=== PATIENT | female | born 2000 | race Hispanic/Latino ===

== ENCOUNTER 2024-04-28 00:04 | Emergency (ER) | payer SELFPAY ==
[~2024-04-28] VITALS: Ht 172.7 cm; Wt 116.1 kg
--- NOTE | 2024-04-28 00:08 | NUR ---
UA CUP PROVIDED
[2024-04-28 00:35] LABS: BASOPHILS # (AUTO) 0.01 K/uL (0.00-0.20); BASOPHILS % (AUTO) 0.1 % (0.0-5.0); EOSINOPHILS # (AUTO) 0.05 K/uL (0.00-0.70); EOSINOPHILS % (AUTO) 0.4 % (0.0-8.0); HEMATOCRIT 43.6 % (36-48); IMMATURE GRANULOCYTE ABSOLUTE 0.05 K/uL (0-1); LYMPHOCYTES # (AUTO) 0.6 K/uL (1.0-4.8); MEAN CORPUSCULAR HEMOGLOBIN 29.4 pg (27.0-33.0); MEAN CORPUSCULAR HGB CONC 33.5 g/dL (32.0-36.0); MEAN CORPUSCULAR VOLUME 87.9 fL (79-99); MONOCYTES # (AUTO) 0.4 K/uL (0.1-1.0); MONOCYTES % (AUTO) 3.4 % (3.0-13.0); NEUTROPHILS # (AUTO) 10.6 K/uL (1.8-7.7); NEUTROPHILS % (AUTO) 90.7 % (40.0-77.0); PLATELET COUNT (AUTO) 288 K/uL (130-400); RED BLOOD CELL COUNT(AUTO) 4.96 MIL/uL (4.00-5.50); RED CELL DISTRIBUTION WIDTH 13.5 % (11.0-15.5); WHITE BLOOD COUNT (AUTO) 11.7 K/uL (4.8-10.8)
[2024-04-28 00:42] LABS: CREATININE 0.7 mg/dL (0.5-1.0)
[2024-04-28 00:45] LABS: ALBUMIN 3.9 g/dL (3.5-5.0); BILIRUBIN,DIRECT 0.2 mg/dL (0.0-0.3); BILIRUBIN,TOTAL 0.9 mg/dL (0.2-1.0); TOTAL PROTEIN, SERUM 7.8 g/dL (6.0-8.3)
[2024-04-28] MEDS: ondanSETRON ODT 4MG TAB SL ONE (00:47)
[2024-04-28] MEDS: PANTOPrazole 40 MG TAB DR PO ONE (00:47)
[2024-04-28] MEDS: MAG/ALUM/SIMETH 30 ML UDCUP PO ONE (00:47)
[2024-04-28] MEDS: LIDOCAINE HCL 2% VISCOUS 15 ML UDCUP PO ONE (00:47)
[2024-04-28 01:11] LABS: APPEARANCE,URINE CLOUDY (CLEAR); BILIRUBIN,URINE NEGATIVE (NEGATIVE); COLOR,URINE YELLOW (YELLOW); GLUCOSE, URINE (UA) NEGATIVE (NEGATIVE); KETONES,URINE 10 mg/dL (NEGATIVE); LEUKOCYTE ESTERASE ,URINE 250 Leu/uL (NEGATIVE); NITRATE,URINE NEGATIVE (NEGATIVE); OCCULT BLOOD,URINE MODERATE (NEGATIVE); PROTEIN,URINE 20 mg/dL (NEGATIVE); UROBILINOGEN,URINE 0.2 mg/dL (0.2-1.0)
[2024-04-28 01:16] LABS: BACTERIA,URINE RARE /HPF (None Seen); MUCUS,URINE RARE LPF (None Seen); SQUAMOUS EPITHELIAL CELL,UR MANY /HPF (0-2)
[2024-04-28 01:18] LABS: HCG,QUALITATIVE URINE NEGATIVE (NEGATIVE)
[2024-04-28] MEDS ORDERED: CEPH500T PO (01:50)
[2024-04-28] MEDS ORDERED: ONDA-243 PO (01:50)
[2024-04-28] MEDS ORDERED: OMEP10CA5 PO (01:50)
--- NOTE | 2024-04-28 01:51 | ERN ---
General Chief Complaint: Abdominal Pain Stated Complaint: ABD N/V/D Time Seen by MD: 00:10 Time Seen by Midlevel: 00:10 Source: patient History of Present Illness Initial Comments 23-year-old female who presents to the emergency department due to abdominal pain onset today. Patient reports nausea, vomiting, diarrhea but denies any fever, cough, congestion, shortness of breath or further associated symptoms. Patient unknown of last unknown menstrual cycle. Patient denies any significant past medical history. Allergies: Coded Allergies: No Known Allergies (Unverified Allergy, Unknown, 04/28/24) Home Meds Active Scripts Ondansetron (Ondansetron Odt) 4 Mg Tab.rapdis, 4 MG PO TID for 3 Days, #9 TAB Prov:SAMANTHA GUZMÁN 04/28/24 Omeprazole (Omeprazole) 10 Mg Capsule.dr, 1 CAP PO DAILY PRN for prn for 7 Days, #30 CAP 0 Refills Prov:SAMANTHA GUZMÁN 04/28/24 Cephalexin (Cephalexin) 500 Mg Tablet, 1 TAB PO BID for 7 Days, #14 TAB 0 Refills Prov:SAMANTHA GUZMÁN 04/28/24 Past Medical History Past Medical History: No Pertinent History Past Surgical History: None ROS Dictation Constitutional: Negative for fever,chills, and weight loss Eyes: Negative for injury, pain,redness, and discharge ENT: Negative for injury,pain or swelling Cardiovascular: Negative for chest pain, palpitations, and edema Respiratory: Negative for shortness of breath, cough, and wheezing, Abdomen/GI: Positive for abdominal pain, nausea, vomiting, diarrhea Negative for constipation Back: Negative for injury and pain : Negative for painful urination, bleeding or discharge MS/Extremity: Negative for injury and deformity Skin: Negative for rash, and discoloration Neuro: Negative for headache, weakness, numbness, tingling, and seizure Psych: Negative for suicide ideation, homicidal ideation, and hallucinations Physical Exam Physical Exam Dictation General: awake, alert, no acute distress Head/Face: Normocephalic, atraumatic Eyes: PERRL, EOMI, normal conjunctiva ENT: oral cavity clear, oral mucosa moist Neck: Supple, normal range of motion Cardiovascular: RRR, normal S1/S2 Respiratory: CTAB, no respiratory distress, no rales or wheezes Abdomen: Soft, non-tender, non-distended, normal bowel sounds, no guarding or rebound. Skin: Warm, dry, normal turgor, no rash MS/Extremity: Pulses equal, no cyanosis, neurovascular intact, FROM Neuro: COAx4, GCS 15, no neurological deficits, normal gait Results Laboratory and Microbiology Lab and Micro Result Laboratory Tests Test 04/28/24 00:25 04/28/24 00:54 White Blood Count 11.7 K/uL (4.8-10.8) H Red Blood Count 4.96 MIL/uL (4.00-5.50) Hemoglobin 14.6 g/dL (12.0-16.0) Hematocrit 43.6 % (36-48) Mean Corpuscular Volume 87.9 fL (79-99) Mean Corpuscular Hemoglobin 29.4 pg (27.0-33.0) Mean Corpuscular Hemoglobin Concent 33.5 g/dL (32.0-36.0) Red Cell Distribution Width 13.5 % (11.0-15.5) Platelet Count 288 K/uL (130-400) Mean Platelet Volume 10.0 fL (7.5-10.5) Immature Granulocyte % (Auto) 0.4 % (0-1) Neutrophils (%) (Auto) 90.7 % (40.0-77.0) H Lymphocytes (%) (Auto) 5.0 % (21.0-51.0) L Monocytes (%) (Auto) 3.4 % (3.0-13.0) Eosinophils (%) (Auto) 0.4 % (0.0-8.0) Basophils (%) (Auto) 0.1 % (0.0-5.0) Neutrophils # (Auto) 10.6 K/uL (1.8-7.7) H Lymphocytes # (Auto) 0.6 K/uL (1.0-4.8) L Monocytes # (Auto) 0.4 K/uL (0.1-1.0) Eosinophils # (Auto) 0.05 K/uL (0.00-0.70) Basophils # (Auto) 0.01 K/uL (0.00-0.20) Absolute Immature Granulocyte (auto 0.05 K/uL (0-1) Nucleated Red Blood Cells 0.0 % (0.0-0.19) White Cell Morphology Comment See comments Sodium Level 136 mmol/L (136-145) Potassium Level 4.0 mmol/L (3.5-5.1) Chloride Level 102 mmol/L (101-111) Carbon Dioxide Level 25 mmol/L (21-32) Blood Urea Nitrogen 10 mg/dL (7-18) Creatinine 0.7 mg/dL (0.5-1.0) Glomerular Filtration Rate Calc 125 mL/min (>90) Random Glucose 143 mg/dL (70-105) H Total Calcium 9.0 mg/dL (8.5-10.1) Total Bilirubin 0.9 mg/dL (0.2-1.0) Direct Bilirubin 0.2 mg/dL (0.0-0.3) Aspartate Amino Transf (AST/SGOT) 21 U/L (10-37) Alanine Aminotransferase (ALT/SGPT) 36 U/L (12-78) Alkaline Phosphatase 77 U/L (50-136) Total Protein 7.8 g/dL (6.0-8.3) Albumin 3.9 g/dL (3.5-5.0) Lipase 16 U/L (16-77) Urine Color YELLOW (YELLOW) Urine Appearance CLOUDY (CLEAR) H Urine pH 5.0 (5.0-8.0) Urine Specific [place] 1.027 (1.001-1.031) Urine Protein 20 mg/dL (NEGATIVE) H Urine Glucose (UA) NEGATIVE mg/dL (NEGATIVE) Urine Ketones 10 mg/dL (NEGATIVE) H Urine Occult Blood MODERATE (NEGATIVE) H Urine Nitrate NEGATIVE (NEGATIVE) Urine Bilirubin NEGATIVE mg/dL (NEGATIVE) Urine Urobilinogen 0.2 mg/dL (0.2-1.0) Urine Leukocyte Esterase 250 Pérez/uL (NEGATIVE) H Urine RBC 11-25 /HPF (0-1) H Urine WBC 6-10 /HPF (0-1) H Urine Squamous Epithelial Cells MANY /HPF (0-2) Urine Bacteria RARE /HPF (None Seen) Urine HCG, Qualitative NEGATIVE (NEGATIVE) Labs Reviewed?: Yes MDM MDM: Differential diagnosis: Gastritis, acid reflux, urinary tract infection, , gastroenteritis Rationale: 23-year-old female who presents to the emergency department due to abdominal pain onset today. Patient reports nausea, vomiting, diarrhea but denies any fever, cough, congestion, shortness of breath or further associated symptoms. Patient unknown of last unknown menstrual cycle. Patient denies any significant past medical history. Per physical examination patient is in no acute distress, nonlabored breathing, abdomen is soft nontender. Labs obtained are nonspecific, mild WBC elevation at 11.7, hepatic function within normal limits, urine negative. Patient received a GI cocktail and on re-examination verbalized pain had resolved. UA indicates a urinary tract infection therefore patient received Rocephin in the ED. Antibiotics prescribed for outpatient treatment. Patient was educated on findings and diagnosis. Advised to follow up with PCP. Return to the emergency department if any worsening symptoms. Patient verbalized understanding. Kim ent stable for discharge. There are no social concerns with this patient. I independently interpreted the test that were performed, results were reviewed by me and considered findings on radiology if ordered. Medical management and examination interpretation discussions were had by me with other qualified healthcare professionals as indicated for the patient's care. ED Course Orders Procedure Category Date Status Time Cbc With Differential LAB 04/28/24 Complete 00:17 Basic Metabolic Panel LAB 04/28/24 Complete 00:17 Hepatic Function Panel LAB 04/28/24 Complete 00:17 Lipase LAB 04/28/24 Complete 00:17 Urinalysis LAB 04/28/24 Complete W/Microscopic 00:17 ,Urine Test LAB 04/28/24 Complete 00:17 Mag/Alum/Simeth 30ml PHA 04/28/24 Complete (Maalox Plus 30ml) 00:30 Lidocaine Hcl 2% PHA 04/28/24 Complete Viscous (Lidocaine Hcl 00:30 Pantoprazole 40mg Tab PHA 04/28/24 Complete (Protonix 40mg Tab 00:30 Ondansetron Odt 4mg PHA 04/28/24 Complete Tab (Zofran 4mg Odt) 00:30 Culture Urine MALENA 04/28/24 In Process 01:14 Ceftriaxone 1g Vial PHA 04/28/24 Logged (Rocephine 1g Inj) 02:00 Current Medications Medications (Trade) Dose Ordered Sig/Merry Route PRN Reason Start Time Stop Time Status Last Admin Dose Admin Al Hydroxide/Mg Hydroxide (MAALox PLUS 30ML) 30 ml ONCE ONCE PO 04/28/24 00:30 04/28/24 00:31 DC 04/28/24 00:47 Ceftriaxone Sodium (ROCEphine 1G INJ) 1 gm ONCE ONCE IM 04/28/24 02:00 04/28/24 02:01 UNV Lidocaine HCl (Lidocaine HCl 2% Viscous) 10 ml ONCE ONCE PO 04/28/24 00:30 04/28/24 00:31 DC 04/28/24 00:47 Ondansetron HCl (zoFRAN 4MG ODT) 4 mg ONCE ONCE SL 04/28/24 00:30 04/28/24 00:31 DC 04/28/24 00:47 Pantoprazole Sodium (PROTonix 40MG TAB) 40 mg ONCE ONCE PO 04/28/24 00:30 04/28/24 00:31 DC 04/28/24 00:47 Vital Signs Date Time Temp Pulse Resp B/P (MAP) Pulse Ox O2 Delivery O2 Flow Rate FiO2 04/28/24 00:05 99.0 125 20 164/101 98 Room Air DX & DISP Disposition: Discharge Departure Impression: Primary Impression: Urinary catheter infection Additional Impressions: Gastritis, Acid reflux, Diarrhea Condition: Stable Scripts Ondansetron (Ondansetron Odt) 4 Mg Tab.rapdis 4 MG PO TID for 3 Days, #9 TAB Prov: SAMANTHA GUZMÁN 04/28/24 Omeprazole (Omeprazole) 10 Mg Capsule.dr 1 CAP PO DAILY PRN for prn for 7 Days, #30 CAP 0 Refills Prov: SAMANTHA GUZMÁN 04/28/24 Cephalexin (Cephalexin) 500 Mg Tablet 1 TAB PO BID for 7 Days, #14 TAB 0 Refills Prov: SAMANTHA GUZMÁN 04/28/24 Additional Instructions: Discharge home. Rest. Follow up with primary care in 24 hours. Return to the ER for any acute changes or worsening symptoms. If any medications were prescribed take as directed. Okay to continue home medications unless otherwise discussed during your visit in the emergency room today. Patient was also advised to follow-up with primary care physician in 1 to 2 days for continued monitoring. Referrals: SELF,REFERRAL (PCP) I performed the substantive portion of the visit. I have reviewed and personally made and approve the management plan that is documented in the notes by myself or the ADRYAN. I acknowledge full responsibility for the patient's management plan. SAMANTHA GUZMÁN Apr 28, 2024 01:50
[2024-04-28 01:53] VITALS: BP 129/87; PULSE 111; RESP 17; TEMP 100; O2SAT 99
[2024-04-28 01:59] VITALS: TEMP 100
[2024-04-28] MEDS: cefTRIAXone 1G VIAL IM ONE (01:59)
[2024-04-28] MEDS: acetaMINOPHEN 500 MG TABLET PO ONE (01:59)
== END 2024-04-28 02:13 | disposition home or self-care (01) ==
LOC: EDH 00:04
DX: T83.511A Infection and inflammatory reaction due to indwelling urethral catheter, initial encounter (principal); N39.0 Urinary tract infection, site not specified; K29.70 Gastritis, unspecified, without bleeding; K21.9 Gastro-esophageal reflux disease without esophagitis; Y84.6 Urinary catheterization as the cause of abnormal reaction of the patient, or of later complication, without mention of misadventure at the time of the procedure
CPT/HCPCS: 99284; 80076; 80048; 83690; 85025; 87086; 81001; 81025; 36415; 96372; J0696